=== PATIENT | male | born 1985 ===

== ENCOUNTER 2018-06-05 08:08 | Day surgery (SDC) | payer OTHER ==
[2018-06-05] MEDS ORDERED: Lactated Ringer's 500 ML IV ONE (09:00)
[2018-06-05 09:19] VITALS: BMI 35.0
[2018-06-05] MEDS ORDERED: Propofol 10 mg/ml Inj (20 ML) ONE (11:58)
[2018-06-05 12:19] VITALS: TEMP 97.7
[2018-06-05 12:46] VITALS: BP 110/63; PULSE 81; RESP 12; O2SAT 96
== END 2018-06-05 13:09 | disposition home or self-care (01) ==
LOC: H.ENDO 08:08
PROVIDERS: ATTEND Internal Medicine Gastroenterology
DX: K31.89 Other diseases of stomach and duodenum (principal); R10.13 Epigastric pain
CPT/HCPCS: 43239; 88305; J2001; J2704; J7120